=== PATIENT | male | born 1960 | race American Indian/Alaskan Native ===

== ENCOUNTER 2017-01-06 11:06 | Inpatient (IN) | payer BC ==
--- NOTE | 2017-01-06 11:41 | ED PDOC ---
Arrival/HPI - General Chief Complaint: Dizziness/Lightheaded Time Seen by Provider: 01/06/17 11:20 Historian: Patient, Partner - History of Present Illness Narrative History of Present Illness (Text): 01/06/17 11:30 Mo Cm is a 56 year old male, who presents to the emergency department accompanied by his , with complaints of lightheadedness and palpitations. Patient reports that Monday night while walking, he began to get severe palpitations. He reports that those have now resolved. He reports that he is having worsening dyspnea on exertion. He reports that he has also had increasing lightheadeness when ambulating. Denies syncope. Denies leg swelling. Denies shortness of breath at rest. Reports that he has not seen his PMD in a long time and has not had a cardiac evaluation in > than 15 years. Patient denies cough, fever, nausea, vomiting. PMD: Dr. Mc 01/06/17 12:51 Time/Duration: < week (symptoms began Monday ) Symptom Onset: Gradual Symptom Course: Unchanged Activities at Onset: Light Context: Walking Associated Symptoms (Text): palpitations and back pain Past Medical History - Provider Review Nursing Documentation Reviewed: Yes - Psychiatric Hx Substance Use: No Family/Social History - Physician Review Nursing Documentation Reviewed: Yes Family/Social History: Unknown Family HX Smoking Status: Heavy Smoker > 10 Cigarettes Daily Hx Alcohol Use: Yes Frequency of alcohol use: Daily Hx Substance Use: No Allergies/Home Meds Allergies/Adverse Reactions: Allergies No Known Allergies Allergy (Verified 01/06/17 11:20) Home Medications: Home Meds Medication Instructions Recorded Confirmed No Known Home Med 01/06/17 01/06/17 Review of Systems - Review of Systems Constitutional: absent: Fevers Respiratory: absent: SOB, Cough, Sputum, Wheezing Cardiovascular: Chest Pain, Palpitations, REDDY. absent: Calf Pain, Orthopnea, Syncope Gastrointestinal: absent: Abdominal Pain, Constipation, Diarrhea, Nausea, Vomiting Genitourinary Male: absent: Dysuria, Frequency Musculoskeletal: absent: Back Pain, Neck Pain Skin: absent: Rash Neurological: Other (lightheadedness). absent: Headache, Gait Changes, Speech Changes, Facial Droop, Disequilibrium Psychiatric: absent: Anxiety, Depression Physical Exam Vital Signs Reviewed: Yes Vital Signs Temp Pulse Resp BP Pulse Ox 01/06/17 12:28 62 16 182/106 H 100 01/06/17 12:18 58 L 18 136/101 H 100 01/06/17 11:07 97.6 F 75 18 178/103 H 99 Temperature: Afebrile Blood Pressure: Hypertensive Pulse: Regular Respiratory Rate: Normal Appearance: Positive for: Well-Appearing, Non-Toxic, Comfortable Pain Distress: None Mental Status: Positive for: Alert and Oriented X 3 Finger Stick Blood Glucose: 102 - Systems Exam Head: Present: Atraumatic, Normocephalic Neck: Present: Normal Range of Motion Respiratory/Chest: Present: Clear to Auscultation, Good Air Exchange. No: Respiratory Distress, Accessory Muscle Use, Wheezes, Rales, Rhonchi Cardiovascular: Present: Regular Rate and Rhythm, Normal S1, S2. No: Murmurs Abdomen: Present: Normal Bowel Sounds. No: Tenderness, Distention, Peritoneal Signs Upper Extremity: Present: Normal Inspection, Normal ROM, NORMAL PULSES, Neurovascularly Intact, Other (distal pulses equal bilaterally ). No: Cyanosis , Edema, Swelling Lower Extremity: Present: Normal Inspection, NORMAL PULSES, Normal ROM. No: Edema, CALF TENDERNESS, Tenderness, Swelling Neurological: Present: GCS=15, CN II-XII Intact, Speech Normal Skin: Present: Warm, Dry, Normal Color. No: Rashes Psychiatric: Present: Alert, Oriented x 3, Normal Insight, Normal Concentration Medical Decision Making ED Course and Treatment: 01/06/17 Impression: 56 year old male with complaints of lightheadedness, palpitations, and mild shortness of breath during light activity. Normal physical exam, and distal pulses are equal bilaterally. Differential Diagnosis included but are not limited to: ACS vs. thyroid dysfunction vs chf Plan: -- EKG -- Chest X-ray -- Labs -- Aspirin -- Reassess and disposition Progress Notes: 01/06/17 EKG: Ordered, reviewed, and independently interpreted the EKG. Rate : 75 BPM Rhythm : NSR Interpretation : No ST-segment elevations or depressions, no T-wave inversions, normal intervals. 01/06/17 12:15 Chest X-ray: Creator : Juan Fernandez MD FINDINGS: LUNGS: No active pulmonary disease. PLEURA: No significant pleural effusion identified, no pneumothorax apparent. CARDIOVASCULAR: Normal. OSSEOUS STRUCTURES: No significant abnormalities. VISUALIZED UPPER ABDOMEN: Normal. OTHER FINDINGS: None. IMPRESSION: No active disease. 01/06/17 12:33 Patient continues to be hypertensive. Hctz 12.5mg ordered. Symptoms of lightheadeness and dsypnea on exertion are concerning for cardiac equivalents. Patient has not had cardiac evaluation in >15 years. Spoke to med electron beam photo mask maker, Dr Fox and will transfer to tele observation for further evaluation. - Lab Interpretations Lab Results: 01/06/17 11:40 01/06/17 11:40 Lab Results 01/06/17 11:40: Sodium 145, Potassium 4.8, Chloride 106, Carbon Dioxide 26, Anion Gap 18, BUN 11, Creatinine 0.7 L, Est GFR ( Amer) > 60, Est GFR ( Non-Af Amer) > 60, Random Glucose 101, Calcium 9.6, Phosphorus 3.6, Magnesium 1.6 L, Total Bilirubin 0.8, AST 159 H, ALT 65 H, Alkaline Phosphatase 72, Lactate Dehydrogenase 1271 H, Total Creatine Kinase 529 H, CK-MB (CK-2) 10.4 H, CK-MB (CK-2) % 2.0 L, Troponin I < 0.01, NT-Pro-B Natriuret Pep 195, Total Protein 9.7 H, Albumin 5.0 H, Globulin 4.8, Albumin/Globulin Ratio 1.0 L 01/06/17 11:40: PT 11.0, INR 1.02, APTT 33.9 H 01/06/17 11:40: WBC 4.0 L, RBC 4.39, Hgb 15.2, Hct 43.8, MCV 99.8, MCH 34.6, MCHC 34.7, RDW 12.4, Plt Count 195, MPV 9.2, Gran % 33.1 L, Lymph % (Auto) 52.6 H, Finney % (Auto) 10.5 H, Eos % (Auto) 3.3, Baso % (Auto) 0.5, Gran # 1.32 L, Lymph # 2.1, Finney # 0.4, Eos # 0.1, Baso # 0.02 01/06/17 11:30: POC Glucose (mg/dL) 102 I have reviewed the lab results: Yes - RAD Interpretation Radiology Orders: 01/06/17 11:24 CHEST PORTABLE [RAD] Stat Machinery Dismantler: Radiologist - EKG Interpretation Interpreted by ED Physician: Yes Type: 12 lead EKG - Medication Orders Current Medication Orders: Discontinued Medications Aspirin (Aspirin Chewable) 324 mg PO STAT STA Stop: 01/06/17 11:37 Last Admin: 01/06/17 11:51 Dose: 324 mg Hydrochlorothiazide (Microzide) 12.5 mg PO STAT STA Stop: 01/06/17 12:24 Last Admin: 01/06/17 12:29 Dose: 12.5 mg - Scribe Statement The provider has reviewed the documentation as recorded by the Florian Albright Provider Scribe Attestation: All medical record entries made by the Florian were at my direction and personally dictated by me. I have reviewed the chart and agree that the record accurately reflects my personal performance of the history, physical exam, medical decision making, and the department course for this patient. I have also personally directed, reviewed, and agree with the discharge instructions and disposition. Disposition/Present on Arrival - Present on Arrival Any Indicators Present on Arrival: No History of DVT/PE: No History of Uncontrolled Diabetes: No Urinary Catheter: No History of Decub. Ulcer: No History Surgical Site Infection Following: None - Disposition Have Diagnosis and Disposition been Completed?: Yes Diagnosis: Lightheadedness Disposition: HOSPITALIZED Disposition Time: 12:40 Patient Plan: Observation Condition: FAIR Referrals: Juan Mc [Primary Care Provider] - Follow up with primary Forms: [employer] (Slovenian)
[2017-01-06 11:50] LABS: BASO # 0.02 K/mm3 (0.0-2.0); BASO % 0.5 % (0.0-3.0); EOS # 0.1 (0.0-0.7); EOS % 3.3 % (1.5-5.0); GRAN # 1.32 (1.4-6.5); GRAN % 33.1 % (50.0-68.0); HEMATOCRIT 43.8 % (42.0-52.0); LYMPH # 2.1 (1.2-3.4); LYMPH % 52.6 % (22.0-35.0); MEAN CELL VOLUME 99.8 fl (80.0-105.0); MEAN CORPUSCULAR HEMOGLOBIN 34.6 pg (25.0-35.0); MEAN CORPUSCULAR HGB CONC 34.7 g/dl (31.0-37.0); MEAN PLATELET VOLUME 9.2 fl (7.0-11.0); MONO # 0.4 (0.1-0.6); MONO % 10.5 % (1.0-6.0); RED CELL DISTRIBUTION WIDTH 12.4 % (11.5-14.5)
[2017-01-06 11:58] LABS: ALKALINE PHOSPHATASE 72 U/L (38-126); ALT/SGPT 65 U/L (7-56); AST/SGOT 159 U/L (17-59); BILIRUBIN,TOTAL 0.8 mg/dL (0.2-1.3); BLOOD UREA NITROGEN 11 mg/dL (7-21); CALCIUM 9.6 mg/dL (8.4-10.5); CARBON DIOXIDE 26 mmol/L (21-33); CHLORIDE 106 mmol/L (98-107); GFR AFRICAN-AMERICAN > 60; GLUCOSE,RANDOM 101 mg/dL (70-110); MAGNESIUM 1.6 mg/dL (1.7-2.2); PHOSPHOROUS 3.6 mg/dL (2.5-4.5); SODIUM 145 mmol/L (132-148); TOTAL PROTEIN 9.7 g/dL (5.8-8.3)
[2017-01-06 12:00] LABS: INR 1.02 (0.93-1.08); PARTIAL THROMBOPLASTIN TIME 33.9 Seconds (23.7-30.8); POTASSIUM 4.8 mmol/L (3.6-5.0)
[2017-01-06 12:08] LABS: TROPONIN I < 0.01 ng/mL
--- NOTE | 2017-01-06 12:14 | RAD ---
HISTORY: chest pain, dizziness COMPARISON: No prior. FINDINGS: LUNGS: No active pulmonary disease. PLEURA: No significant pleural effusion identified, no pneumothorax apparent. CARDIOVASCULAR: Normal. OSSEOUS STRUCTURES: No significant abnormalities. VISUALIZED UPPER ABDOMEN: Normal. OTHER FINDINGS: None. IMPRESSION: No active disease.
[2017-01-06] MEDS ORDERED: Sodium Chloride 0.9% 500 ML IV STA (12:23)
[2017-01-06 13:14] LABS: FREE T4 0.78 ng/dL (0.78-2.19)
[2017-01-06 13:28] LABS: THYROID STIMULATING HORMONE 1.16 mIU/mL (0.46-4.68)
--- NOTE | 2017-01-06 19:08 | US ---
HISTORY: elevated lfts COMPARISON: None. TECHNIQUE: Sonographic evaluation of the right upper quadrant of the abdomen. FINDINGS: LIVER: Measures 13.2 cm in length. Diffusely increased echogenicity of the liver parenchyma. Consistent with fatty infiltration. No mass. No biliary ductal dilatation. GALLBLADDER: Unremarkable. No gallstones. COMMON BILE DUCT: Measures 5 mm. No stones. No dilatation. PANCREAS: Unremarkable as visualized. No mass. No ductal dilatation. RIGHT KIDNEY: Measures 11.2 cm in length. Normal echogenicity. No calculus, mass, or hydronephrosis. AORTA: No aneurysmal dilatation. IVC: Unremarkable. OTHER FINDINGS: None . IMPRESSION: Mild fatty infiltration of the liver. No evidence of cholelithiasis or cholecystitis. No evidence of biliary obstruction.
--- NOTE | 2017-01-06 21:43 | HP ---
HISTORY OF PRESENT ILLNESS: This 56-year-old -Serbian male presented to the [facility] ER earlier today. 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 According to the patient, this has happened in his distant past and at that time, he had a cardiac workup that was reportedly unremarkable. However, when this occurred Monday night at work, he left work early, came home and did not return to work for the rest of this week. He reports that he presents to the [facility] today because of family concerns about his generalized health and his concern that it was related to accelerated hypertension. The patient states that he had no chest pain or palpitation today, no cough, no hemoptysis, no diaphoresis, no jaw pain, no arm pain, but he did feel some mild shortness of breath with exertion. The patient is a one-pack per day cigarette smoker for over 30 years. He also drinks 3 to 5 beers daily as well as hard liquor including daily celine according to his . He is in a non IV drug misuser and states that he has knowledge of high blood pressure, but takes no medication for it. He states he has been noncompliant with medical followup in the past. REVIEW OF SYSTEMS: CONSTITUTIONAL REVIEW: Denied fever, chills or weight loss. HEAD REVIEW: Denied any headache or knowledge of stroke or TIA. EYES REVIEW: Denied change in visual acuity. EARS REVIEW: Denied hearing loss. THROAT REVIEW: Denied swallowing difficulty. NECK REVIEW: Denied stiffness. CARDIAC REVIEW: History of palpitations in the distant past, history of high blood pressure for which he is on no medical therapy. PULMONARY: No knowledge of emphysema, but does have a history of pneumonia in his distant past. GASTROINTESTINAL: Denied nausea, vomiting, diarrhea, hematemesis or melena. GENITOURINARY: Denied dysuria. SKIN: No rashes. VASCULAR: No claudication. PSYCHOLOGICAL: No anxiety. No depression. NEUROLOGICAL: No knowledge of seizure or stroke. FAMILY HISTORY: Mother at 84 of myocardial infarction. Father in his 50s of pneumonia. He has a older brother who has coronary artery disease and a sister who is 10 years senior with peptic ulcer disease. ALLERGIES: THE PATIENT HAS NO KNOWN ALLERGIES TO MEDICATION. PHYSICAL EXAMINATION: VITAL SIGNS: The patient is in a normal sinus rhythm on the cardiac surgeon. There were no reports of ventricular ectopy or tachycardia. When the patient presented to the ER, blood pressure was 178/103; after medication, the patient at present has a blood pressure 140/80; temperature is 98.3; respirations 18; pulse 79; pulse ox 99% on room air. HEENT: Head is normocephalic and atraumatic. Eyes: No icterus. Ears: Clear. Throat: Noninjected. NECK: Supple. HEART: Regular S1 and S2. No pathological rubs, murmurs or gallops. LUNGS: Clear to auscultation. ABDOMEN: Soft and nontender. No palpable organomegaly. No rebound. No guarding. No tenderness. EXTREMITIES: Show no clubbing, no cyanosis, no edema. SKIN: Shows no rash. VASCULAR EXAM: Legs are warm to touch. PSYCHOLOGICAL EXAM: Alert and oriented x3. NEUROLOGIC EXAMINATION: Grossly intact. LABORATORY DATA: White count 4000; hemoglobin 15.2; hematocrit 43.8; platelets 195,000. PT/INR 1.02, PTT 33.9. Sodium 145, K 4.8, chloride 106, bicarb 26, BUN 11, creatinine 0.7, random blood sugar was 102. Phosphorous normal at 3.6. Magnesium 1.6, normal is 1.7 or higher. Bilirubin 0.8, AST elevated at 159, ALT elevated at 65, alk phos normal at 72. Troponin less than 0.01. T4 normal at 0.78. TSH normal at 1.16. Chest x-ray was reviewed and read by Dr. Juan Lorenzo; it shows no active pulmonary disease, no significant pleural effusions, no pneumothorax. Cardiovascular, normal. IMPRESSION: A 56-year-old male with history of noncompliance with medical followup in his past with history of hypertension, now with symptoms related to accelerated hypertension, also with strong smoking history; history of alcohol abuse and misuse; elevated liver function testing, probably on the basis of his misuse of alcohol and family history of atherosclerotic heart disease. PLAN: At present as discussed with the patient and his and daughter at his bedside is to maintain the patient on the cardiac unit where he will have cardiac isoenzymes QA x2. He is ordered to have a repeat comprehensive metabolic panel in the a.m.; a hepatitis A, B and C panel; fasting lipid panel in the a.m. and a repeat CBC in the a.m. He is ordered to receive hydrochlorothiazide 25 mg p.o. daily, Norvasc 5 mg p.o. daily, Nicoderm 14 mg daily per 24 hours patch to his arm daily, Tylenol 650 p.o. q. 6 hours p.r.n. pain or fever and nitroglycerin 1 inch to chest wall q. 4 hours p.r.n. accelerated hypertension, if his systolic blood pressure should be greater than 160 or diastolic blood pressure should be greater than 100. EKG showed a normal sinus rhythm. He is ordered to have a heart-healthy diet. I will order a 2-D echocardiogram for completeness sake and as discussed with the patient and his family, we will decide the timing of his Lexiscan stress test based on his clinical progress. The patient was advised that he will need a hepatic ultrasound regarding his elevated liver function testing which is most likely on the basis of his alcohol abuse and misuse, and he and his are aware that it is imperative that he desist from both smoking and drinking immediately. Hopefully, he will be compliant with the above recommendations and additional workup will be entertained based on his clinical results and progress. All of the above was discussed in detail with the patient, and daughter at the bedside. The case was also reviewed with his nurse, Gris Love, registered nurse. Greater than fifty minutes was spent in the care management and counseling of this patient today. Nickie Fox MD MTDD
[2017-01-06 21:46] VITALS: BMI 22.4
[2017-01-06] MEDS ORDERED: Pneumococcal 23-Valent Vaccine IM ONE (21:46)
[2017-01-06] MEDS ORDERED: Influenza Vaccine 60 mcg/0.5 mL SYR (4YR UP) IM ONE (21:46)
[2017-01-06 22:28] LABS: TROPONIN I < 0.01 ng/mL
[2017-01-07 08:07] LABS: BASO # 0.01 K/mm3 (0.0-2.0); BASO % 0.2 % (0.0-3.0); EOS # 0.1 (0.0-0.7); GRAN # 1.57 (1.4-6.5); GRAN % 38.6 % (50.0-68.0); HEMATOCRIT 43.2 % (42.0-52.0); LYMPH # 1.9 (1.2-3.4); LYMPH % 45.6 % (22.0-35.0); MEAN CELL VOLUME 99.1 fl (80.0-105.0); MEAN CORPUSCULAR HEMOGLOBIN 34.2 pg (25.0-35.0); MEAN CORPUSCULAR HGB CONC 34.5 g/dl (31.0-37.0); MEAN PLATELET VOLUME 9.7 fl (7.0-11.0); MONO # 0.5 (0.1-0.6); MONO % 12.6 % (1.0-6.0); RED CELL DISTRIBUTION WIDTH 12.3 % (11.5-14.5); WHITE BLOOD COUNT 4.1 10^3/ul (4.5-11.0)
[2017-01-07 08:14] LABS: ALB/GLOB RATIO 1.1 (1.1-1.8); ALKALINE PHOSPHATASE 62 U/L (38-126); ALT/SGPT 64 U/L (7-56); AST/SGOT 100 U/L (17-59); BILIRUBIN,TOTAL 1.4 mg/dL (0.2-1.3); BLOOD UREA NITROGEN 14 mg/dL (7-21); CALCIUM 9.8 mg/dL (8.4-10.5); CARBON DIOXIDE 28 mmol/L (21-33); CHLORIDE 101 mmol/L (98-107); CHOLESTEROL 171 mg/dL (130-200); GFR AFRICAN-AMERICAN > 60; GLUCOSE,RANDOM 112 mg/dL (70-110); POTASSIUM 4.2 mmol/L (3.6-5.0); SODIUM 137 mmol/L (132-148); TOTAL PROTEIN 8.4 g/dL (5.8-8.3)
[2017-01-07 08:51] LABS: TROPONIN I < 0.01 ng/mL
[2017-01-07] MEDS: Nitroglycerin 2% Ointment Foilpak UD TOP PRN ×2 (09:22→16:43)
[2017-01-07 10:38] LABS: MAGNESIUM 1.4 mg/dL (1.7-2.2)
--- NOTE | 2017-01-07 14:10 | CARD ---
APPROVED REPORT EXAM: Two-dimensional and M-mode echocardiogram with Doppler and color Doppler. INDICATION LV Function:SystolicDiastolic 2D DIMENSIONS Left Atrium (2D)3.1 (1.6-4.0cm)IVSd1.3 (0.7-1.1cm) LVDd4.7 (3.9-5.9cm)PWd1.4 (0.7-1.1cm) LVDs3.6 (2.5-4.0cm)LVEF (%)50.0 (>50%) M-Mode DIMENSIONS Aortic Root2.70 (2.2-3.7cm)Aortic Cusp Exc.1.90 (1.5-2.0cm) Aortic Valve AoV Peak Ahjcfhwr603.0cm/[place] Peak GR.5mmHg Mitral Valve MV E Qcmrbxof09.0cm/sMV A Vxurokpa22.4cm/sE/A ratio0.9 TDI E/Lateral E'0.0E/Medial E'0.0 Tricuspid Valve TR Peak [id number]/sRAP [id number] Peak Gr.12mmHg [id number] LEFT VENTRICLE The left ventricle is normal size. There is borderline to mild concentric left ventricular hypertrophy. The systolic function is mildly impaired.EF-45% There is mild hypokinesis in the apical anterior wall. Transmitral Doppler flow pattern is Grade III-reversible restrictive diastolic dysfunction. No left ventricle thrombus noted on this study. There is no ventricular septal defect visualized. There is no left ventricular aneurysm. There is no mass noted in the left ventricle. RIGHT VENTRICLE The right ventricle is normal size. There is normal right ventricular wall thickness. The right ventricular systolic function is normal. ATRIA The left atrium size is normal. The right atrium size is normal. The interatrial septum is intact with no evidence for an atrial septal defect. AORTIC VALVE The aortic valve is thickened but opens well. The aortic valve is moderately sclerotic. No aortic regurgitation is present. There is no aortic valvular stenosis. There is no aortic valvular vegetation. MITRAL VALVE The mitral valve is thickened but opens well. Mitral annular calcification is mild. Mitral regurgitation is trace. There is no mitral valve stenosis. There is no evidence of mitral valve prolapse. TRICUSPID VALVE The tricuspid valve leaflets are thickened , but open well. There is mild tricuspid regurgitation.RVSP-31 mm of Hg. There is no tricuspid valve stenosis. There is no tricuspid valve prolapse or vegetation. PULMONIC VALVE The pulmonary valve is normal in structure. There is trace to mild pulmonic valvular regurgitation. There is no pulmonic valvular stenosis. GREAT VESSELS The aortic root is normal in size. The ascending aorta is normal in size. The pulmonary artery is normal. The IVC is normal in size and collapses >50% with inspiration. PERICARDIAL EFFUSION There is no pleural effusion. There is a trace pericardial effusion. <Conclusion> The left ventricle is normal size. There is borderline to mild concentric left ventricular hypertrophy. Mitral regurgitation is trace. There is mild tricuspid regurgitation.RVSP-31 mm of Hg. There is trace to mild pulmonic valvular regurgitation. There is a trace pericardial effusion. No vegetation noted.
--- NOTE | 2017-01-07 14:29 | CARD ---
APPROVED REPORT EKG Measurement Heart [id number] LA [id number] <Conclusion> Normal sinus rhythm Possible Left atrial enlargement Borderline ECG
--- NOTE | 2017-01-07 22:06 | PN ---
DATE OF SERVICE: 01/07/2017 HISTORY OF PRESENT ILLNESS: This 56-year-old male was examined at his bedside. His case was reviewed in detail with himself and his nurse, Kaity Felton, registered nurse. 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 He denies any chest pain or shortness of breath at rest. He has no fever or chills and there have been no reports of cough, hematemesis, or hemoptysis. PHYSICAL EXAMINATION: VITAL SIGNS: Temperature is 98.9, respirations 20, pulse 66, and blood pressure 161/92 with a pulse oximetry of 98% on room air. HEENT: His head is normocephalic, atraumatic. Eyes, no icterus. Ears, clear. Throat, not injected. NECK: Supple. HEART: Regular S1 and S2. No pathological rubs, murmurs, or gallops. LUNGS: Clear to auscultation. ABDOMEN: Soft, nontender. No palpable organomegaly. EXTREMITIES: No clubbing, no cyanosis, no edema. SKIN: Without rash. NEUROLOGICAL: Intact. PSYCHOLOGICAL: Alert. VASCULAR: Legs warm to touch. LABORATORY DATA: White count 4100, hemoglobin 14.9, hematocrit 43.2, platelets 184,000, PT/INR 1.02, PTT 33.9, sodium 137, potassium 4.2, chloride 101, bicarb 28, BUN 14, creatinine 0.8, random blood sugar 112, magnesium level was low at 1.4, bilirubin 1.4, AST 100, down from 159, ALT 64, previously 65, alkaline phosphatase 62, normal, troponin was less than 0.01 x3, cholesterol 171, triglycerides 101, LDL less than 30, HDL 109. TFTs, free T4 normal 0.78, TSH normal 1.16. Hepatitis A, B, C serology negative. I did review his abdominal ultrasound which shows that his liver measures 13.2 cm in length with diffusely increased echogenicity of his liver parenchyma consistent with fatty infiltration. No masses and no biliary ductal dilatation were noted. IMPRESSION: This is a 56-year-old male, admitted with uncontrolled accelerated hypertension, elevated liver function testing in the setting of fatty liver and history of alcohol abuse and misuse with hypomagnesemia and negative troponins with questionable dyspnea on exertion. PLAN: At present is to place this patient on magnesium and recheck his magnesium level in the morning. He has been counseled on the need for compliance with antihypertensive medication which will be started at hydrochlorothiazide 25 mg daily and I will be increasing his Norvasc from 5 mg to 10 mg p.o. daily. There is an order for nitroglycerin 1 inch to chest wall q.4h. p.r.n. accelerated hypertension if his systolic blood pressure should be greater than 160 or diastolic blood pressure should be greater than 100. He is also ordered to receive Tylenol 650 p.o. q. 6h. p.r.n. pain, headache, or fever greater than 101. He continues on a heart-healthy diet. He is awaiting a 2D echocardiogram. Pending his clinical progress, I will be ordering a Lexiscan stress test prior to his discharge and the patient requires continued hospital stay for adjustment of medication and monitoring of electrolytes given his accelerated hypertension, history of dyspnea on exertion, and hypomagnesemia. All of this has been explained to the patient in detail who was in agreement with the above plan of action. Greater than fifty minutes was spent in the care, management and counseling of this patient today. Nickie Fox MD MTDD
[2017-01-08] MEDS: Magnesium Oxide 400 mg Tab UD PO SCH ×2 (09:56→18:20)
--- NOTE | 2017-01-08 17:02 | PN ---
DATE: 01/08/2017 SUBJECTIVE: This 56-year-old male who was examined at his bedside and his case was reviewed in detail with himself and his nurse, Kaity Be, registered nurse. The patient remains in a normal sinus rhythm on the monitor. He has no shortness of breath, no chest pain and is awaiting a Lexiscan, cardiac stress test, PHYSICAL EXAMINATION: VITAL SIGNS: Temperature 98.8, respirations 20, pulse 98 and blood pressure 124/79. HEENT: Head is normocephalic, atraumatic. Eyes no icterus. Ears: Clear. Throat: Noninjected. NECK: Supple. HEART: Regular S1, S2. LUNGS: Clear. ABDOMEN: Soft, nontender. No palpable organomegaly. No rebound, no guarding. No tenderness. EXTREMITIES: No clubbing, no cyanosis, no edema. SKIN: Without rash. NEUROLOGICAL: Intact. PSYCHOLOGICAL: Alert and oriented x3. VASCULAR: Legs warm to touch. LABORATORY DATA: White count 4100, hemoglobin 14.9, hematocrit 43.2, platelets 184,000. PT/INR 1.02, PTT 33.9. Sodium 137, potassium 4.2, chloride 101, bicarb 28, BUN 14, creatinine 0.8, random blood sugar 112. Bilirubin 1.4, AST 100, ALT 64, alk phos 62. Troponin was less than 0.01 x3. Cholesterol 171, LDL less than 30, HDL 109, triglycerides 101. T4 normal 0.78. TSH normal 1.16. Hepatitis A, B, C serology negative. IMPRESSION: This is a 56-year-old male admitted with accelerated hypertension, history of smoking abuse, alcohol abuse and misuse. Elevated liver function testing with abdominal ultrasound consistent with fatty liver and elevated liver function testing probably on the basis of both fatty liver and alcohol abuse and misuse. PLAN: At present is to recheck magnesium level in a.m. after magnesium supplementation. He will continue on adjusted antihypertensive medication including hydrochlorothiazide 25 mg p.o. daily and Norvasc 10 mg p.o. daily, he continues on magnesium oxide 400 mg p.o. b.i.d. which will be discontinued in a.m. He continues on Nicoderm smoking patch 14 mg q.24 hours. He also has an order for nitroglycerin to chest wall 1 inch q.4 hours. p.r.n. accelerated hypertension if systolic blood pressure is greater than 160 or diastolic blood pressure is greater than 100. He has been ordered to have a heart-healthy diet. He is awaiting Lexiscan stress testing, 2-D echocardiogram was reviewed with the patient and nurse and showed left ventricle normal in size, borderline ventricular hypertrophy, mild trace mitral regurgitation, and no vegetations noted. The patient was also counseled regarding smoking cessation and alcohol cessation and greater than fifty minutes was spent in the care, management and counseling of this patient today. All questions were answered. Nickie Fox MD MTDCesar
[2017-01-09] MEDS ORDERED: Aminophylline 25 mg/ml Inj ONE (08:21)
[2017-01-09] MEDS: Magnesium Oxide 400 mg Tab UD PO SCH (13:41)
--- NOTE | 2017-01-09 14:50 | PN ---
DATE: 01/09/2017 SUBJECTIVE: This 56-year-old male is being readied for a Lexiscan stress test having completed a 2-D echocardiogram that was relatively unremarkable. The patient was admitted with accelerated hypertension and complains of dyspnea on exertion. 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 HEENT: Head: Normocephalic, atraumatic. Eyes: No icterus. Ears: Clear. Throat: Noninjected. NECK: Supple. HEART: Regular S1, S2. LUNGS: Clear. ABDOMEN: Soft. EXTREMITIES: No edema. SKIN: Without rash. NEUROLOGICAL: Intact. PSYCHOLOGICAL: Alert. VASCULAR: Legs warm to touch. LABORATORY DATA: White count 4100, hemoglobin 14.9, hematocrit 43.2, platelets 184,000. Sodium 137, K 4.2, chloride 101, bicarb 28, BUN 14, creatinine 0.8, random blood sugar 112. Liver functions were elevated including bilirubin 1.4, AST 100, ALT 64, alkaline phosphatase 62. Magnesium normal at 1.7. Hepatitis A, B, C panel negative. Cholesterol 171, LDL less than 30, HDL 109 and triglycerides 101. T4 normal 0.78. Abdominal ultrasound was reviewed and is consistent with fatty liver. No hepatic masses. An echocardiogram was reviewed showed left ventricle normal in size with systolic function noted to be left ventricular ejection fraction of 45%. IMPRESSION AND PLAN: A 56-year-old male male admitted with accelerated hypertension, history of a smoking abuse, alcohol abuse and misuse, elevated liver function testings on the basis of alcohol abuse, misuse and fatty liver. Plan is to proceed with a Lexiscan stress test. He continues on heart healthy diet. He will continue on HydroDIURIL, Norvasc, Nicoderm patch and nitroglycerin ointment as outlined and based on the results of his Lexiscan stress test, additional testings will be entertained. All of this was discussed in detail with the patient and nursing. Approximately fifty minutes was spent in the care, management and conseling of this patient on the cardiac unit. All questions were answered. Nickie Fox MD [facility]
--- NOTE | 2017-01-09 21:24 | CARD ---
APPROVED REPORT Protocol: LEXISCAN Test Type: Lexiscan Sestamibi Stress Test Attending Physician: Dr. Marcus Vazquez Referring Physician: Dr. Nickie Fox Test Indications: Dizziness, Palpitations, HBP, Smoker Height:6 ft 0 in Weight:138lbs Medications: Tylenol, Norvasc, Hydrodiuril, Mag-ox, Nicotine Medical History: 56 y/o male smoker with HBP and dizziness/palpitations. Target HR: 163 bpm Resting ECG: RSR Resting Heart Rate: 71 bpm Resting Blood Pressure: 140/84mmHg Submaximum (85%): 139 bpm PROCEDURE Pharmacologic stress testing was performed using 0.4mg per 5ml of regadenoson given intravenously over 7-10 seconds. POST EXERCISE Reason for Termination: Protocol completed Target HR: No Max HR: 90 bpm 60% of Maximum Predicted HR: 163 bpm Exercise duration: 05:29 min:sec, 0 Stage Exercise capacity: 1.0METs Max Blood Pressure: 140/84mmHg Blood Pressure response to exercise: normal resting BP - appropriate response Heart Rate response to exercise: appropriate Chest Pain: No, none Angina index: 0 Arrhythmia: No, none ST Change: Yes, Borderline Deviation: 0 mm TEST SUMMARY [id number]/84.0. INFUSIONDOSE 101:000.00.01.081/.1.00:27 Denice inj over 10 sec, Naren inj at 25 sec. INFUSIONDOSE 201:[id number]/60.0. INFUSIONDOSE 301:000.00.01.096/.0. INFUSIONDOSE 401:000.00.01.092/.0. INFUSIONDOSE 501:000.00.01.086/.0. INFUSIONDOSE 600:290.00.01.090/.0. INTERPRETATION Stress EKG Conclusion: Lexiscan nuclear stress test which was negative for chest pain and arrhythmia but borderline for ischemia: Biphasic T wave in V4 and 1.[address] depressions V 5,6 developed after Lexiscan injected. Nuclear scans pending. Signed by Marcus Vazquez Electronically Approved: 01/09/2017 13:21:13 EXAM: Myocardial Perfusion STRESS/REST Stress Test Type: Pharmacologic Imaging Protocol Rest Spect myocardial perfusion imaging was performed in supine position 45 minutes following the injection of 30.2 mCi of Tc-99 Myoview. At peak stress, the patient was injected intravenously with 10.5mCi of Tc-99 tetrofosmin after an infusion time of 0 minutes and 10 seconds. Gated Stress Spect was performed 75 minutes after intravenous Tc-99 Myoview injection. The images were gated to evaluate regional wall motion and calculate ventricular ejection fraction.Images were reconstructed using backfilter projection method in short horizontal and verticle long axis. Spect slices were generated. LV Perfusion The quality of the study is good. The left ventricle is mildly enlarged in size. The right ventricle is unremarkable. The lung uptake is normal. The distribution of tracer reveals mildly and diffusely decreased perfusion in the inferior wall on the stress study. The remainder of the LV myocardium is unremarkable. The rest myocardial perfusion study shows no significant change. Wall Motion Wall motion study shows good contractility of the left ventricle. LVEF = 54%. Conclusion 1. Essentially normal SPECT myocardial perfusion study. 2. Fixed, inferior defect is most likely due to diaphrgmatic attenuation. 3. Normal gated wall motion and thicknening of the left ventricle.
[2017-01-10 06:16] VITALS: O2SAT 99
[2017-01-10 12:29] VITALS: BP 125/77; PULSE 96; RESP 21; TEMP 97
--- NOTE | 2017-01-11 01:23 | DS ---
FINAL DIAGNOSES: Accelerated hypertension, improved, history of alcohol abuse, elevated liver function testing secondary to alcohol misuse and abuse, fatty liver, smoking abuse, and hypomagnesemia, improved. DISPOSITION: Home. The patient advised to follow up with his PMD Dr. Mc in 48 hours. DISCHARGE MEDICATIONS: Hydrochlorothiazide 25 mg p.o. daily, one month supply, no refill. Norvasc 10 mg p.o. daily one month supply, no refill. The patient advised to use Nicoderm smoking patch 14 mg q. 24 hours. daily, counseled on smoking cessation. The patient and advised regarding need for discontinuation of alcohol abuse and its use. DISCHARGE FOLLOWUP: The patient advised to follow up with PMD regarding return to work note. The patient given a note that he was hospitalized at [facility] 01/06/2017 through 01/10/2017. SUMMARY: This 56-year-old male presented to [facility] complaining of fatigue and lightheadedness with clinical findings of accelerated hypertension. He was admitted to the cardiac unit because of a previous complaint of palpitations. Throughout his entire hospital stay he remained in a normal sinus rhythm with no ectopy or evidence of cardiac arrhythmia. He was ruled out for myocardial infarction which negative troponins x3. He was noted to have hypomagnesemia which was replaced with oral therapy. He had a chest x-ray that showed no active pulmonary disease. He had an abdominal ultrasound regarding elevated liver function testing that showed only fatty liver. He had a 2-D echocardiogram of the heart that showed no significant valvular abnormalities and that the left ventricle was normal in size with mild left ventricular hypertrophy and he completed a Lexiscan myocardial stress test that was an essentially normal SPECT myocardial perfusion study with a fixed inferior defect noted most likely due to diaphragmatic attenuation. He was noted to have a wall motion study that showed good contractility of the left ventricle and an ejection fraction of 54%. This was interpreted as a normal gated wall motion study with thickening of the left ventricle. The patient was advised that he will need close outpatient follow up with his PMD for monitoring of his blood pressure and to determine his return to work timing. Hopefully, the patient will be compliant with medication, cessation of smoking and alcohol abuse and greater than fifty minutes was spent in the care, management and counseling of this patient today. All of the above was reviewed in detail with himself and his nurse, Sandra Debby, registered nurse. All questions were answered. Nickie Fox MD [facility]
--- NOTE | 2017-01-12 08:55 | PQF GENQUE ---
This form is a permanent part of the medical record Dr. Fox, Clarification of your documentation is requested to better reflect the severity of illness and intensity of treatment of your patient. Indicators present : Your dx of accelerated HTN does not meet the criteria as principal dx. Please clarify if HTN in crisis OR urgency. Thank you. [] Specify: [] [] Specify: [] [] Specify: [] [] Specify: [] Location in the medical record that reflects the above clinical findings: [] Treatment Provided: [] PHYSICIAN'S RESPONSE Based on your medical judgment of the clinical indicators outlined above please clarify the following: [] Practitioner response [x] If unable to determine, please check the box, sign and date. Present On Admission (POA) Indicator: [x] Present at the time of admission [] Not present at the time of admission [] Clinically Undetermined In responding to this query, please exercise your independent professional judgment. The fact that a question is asked does not imply that any particular answer is desired or expected. Thank you for your clarification on this documentation. If you have any questions please call:[ ] * Thank you, [ ]YANA SANFORDslackman MONSTER
== END 2017-01-10 14:03 | disposition home or self-care (01) | DRG 305 ==
LOC: ED 11:06 → ERH 12:39 → 2RSO 13:45 → OBSVTOIN 13:56 → 2RSO 01-07 01:03
PROVIDERS: ADMIT Internal Medicine; ATTEND Internal Medicine
DX: I10 Essential (primary) hypertension (principal); E83.42 Hypomagnesemia; I34.0 Nonrheumatic mitral (valve) insufficiency; K70.0 Alcoholic fatty liver; F10.10 Alcohol abuse, uncomplicated; F17.210 Nicotine dependence, cigarettes, uncomplicated; Y90.9 Presence of alcohol in blood, level not specified; Z91.19 Patient's noncompliance with other medical treatment and regimen; Z91.14 Patient's other noncompliance with medication regimen